=== PATIENT | male | born 1985 | race Caucasian/White ===

== ENCOUNTER 2020-04-15 14:15 | Emergency (ER) | payer MEDICAID ==
[~2020-04-15] VITALS: Ht 177.8 cm; Wt 103.4 kg
[2020-04-15 14:26] VITALS: BP_SYST 130
--- NOTE | 2020-04-15 14:34 | NUR ---
Patient triaged and placed in waiting room. VSS and patient appears in no acute distress at this time. Awaiting available bed, and MD notified of need for MSE.
--- NOTE | 2020-04-15 16:50 | NUR ---
ER at bedside examining patient.
--- NOTE | 2020-04-15 16:55 | NUR ---
Pt came to ER for pressure in sinuses rating 4/10 pain. Pt evaluated by , CARLITAS.
[2020-04-15 17:00] VITALS: BP_SYST 130
--- NOTE | 2020-04-15 17:00 | NUR ---
Patient given written and verbal discharge instructions and verbalizes understanding. ER MD discussed with patient the results and treatment provided. Patient in stable condition. ID arm band removed. Rx of Flonase and Amoxicillin given. Patient educated on pain management and to follow up with PMD. Pain Scale 3/10. Opportunity for questions provided and answered. Medication side effect fact sheet provided.
== END 2020-04-15 17:00 | disposition home or self-care (01) ==
LOC: SED 14:15
DX: J32.9 Chronic sinusitis, unspecified (principal)
CPT/HCPCS: 99283

== ENCOUNTER 2020-08-08 06:38 | Emergency (ER) | payer MEDICAID ==
[~2020-08-08] VITALS: Ht 167.6 cm; Wt 74.8 kg
[2020-08-08 07:27] VITALS: BP_SYST 142
[2020-08-08 08:19] VITALS: BP_SYST 142
[2020-08-08] MEDS ORDERED: ACETAMINOPHEN 325 MG TABLET PO ONE (08:30)
== END 2020-08-08 08:20 | disposition home or self-care (01) ==
LOC: SED 06:38
DX: J11.1 Influenza due to unidentified influenza virus with other respiratory manifestations (principal); R50.9 Fever, unspecified; I10 Essential (primary) hypertension; Z20.828 Contact with and (suspected) exposure to other viral communicable diseases
CPT/HCPCS: 99283; U0003

== ENCOUNTER 2022-02-16 10:37 | Emergency (ER) | payer SELFPAY ==
[~2022-02-16] VITALS: Ht 185.4 cm; Wt 99.8 kg
[2022-02-16 10:59] VITALS: BP_SYST 152
[2022-02-16] MEDS ORDERED: MAG HYDROX/AL HYDROX/SIMETH 30 ML, LIDOCAINE VISCOUS 2% 15ML (PO) 15 ML, DICYCLOMINE HC... PO ONE ×3 (12:15)
[2022-02-16] MEDS ORDERED: FAMOTIDINE 20 MG TABLET PO ONE (12:15)
[2022-02-16 12:54] LABS: BASOPHILS % (AUTO) 0.6 % (0.0-2.0); EOSINOPHILS # (AUTO) 0.3 K/uL (0.0-0.4); HEMATOCRIT 42.4 % (36-54); HEMOGLOBIN 13.9 g/dL (14.0-18.0); LYMPHOCYTES % (AUTO) 37.2 % (20.5-51.5); MEAN CORPUSCULAR HEMOGLOBIN 24 pg (27-31); MEAN CORPUSCULAR HGB CONC 33 % (32-36); MEAN CORPUSCULAR VOLUME 74 fL (79.0-98.0); MONOCYTES # (AUTO) 0.2 K/uL (0.0-1.0); MONOCYTES % (AUTO) 3.8 % (1.7-9.3); NEUTROPHILS # (AUTO) 2.8 K/uL (1.8-7.7); NEUTROPHILS % (AUTO) 53.4 % (40.0-70.0); PLATELET COUNT (AUTO) 195 K/uL (130-430); RED BLOOD CELL COUNT(AUTO) 5.73 MIL/uL (4.2-6.2); RED CELL DISTRIBUTION WIDTH 15.3 % (9.0-15.0); WHITE BLOOD COUNT (AUTO) 5.3 K/uL (4.8-10.8)
[2022-02-16 13:20] LABS: CALCIUM 9.3 mg/dL (8.4-11.0); CREATININE 0.9 mg/dL (0.55-1.30); POTASSIUM 4.4 mmol/L (3.5-5.1)
[2022-02-16 13:25] LABS: ALBUMIN 3.8 g/dL (3.4-4.8); TOTAL BILIRUBIN 0.5 mg/dL (0.0-1.0)
[2022-02-16] MEDS ORDERED: OMEP40CA20 PO (14:24)
[2022-02-16] MEDS ORDERED: ANT30 PO (14:25)
[2022-02-16 14:50] VITALS: BP_SYST 137
== END 2022-02-16 14:50 | disposition home or self-care (01) ==
LOC: SED 10:37
DX: K29.00 Acute gastritis without bleeding (principal); R10.13 Epigastric pain; R11.0 Nausea; I10 Essential (primary) hypertension; Z79.899 Other long term (current) drug therapy; Z20.822 Contact with and (suspected) exposure to COVID-19
CPT/HCPCS: 99284; 87426; 80053; 83690; 85025; 36415; 74018; J2001

== ENCOUNTER 2022-02-18 20:13 | Emergency (ER) | payer SELFPAY ==
[~2022-02-18] VITALS: Ht 182.9 cm; Wt 109.8 kg
[~2022-02-18 20:13] MED LIST: ANT30 PO; OMEP40CA20 PO
[2022-02-18 21:04] VITALS: BP_SYST 138
--- NOTE | 2022-02-18 21:38 | NUR ---
Pt placed to ER bed 01 via W/C, to gown, to product safety and standards engineer. Report given to MARCI.
--- NOTE | 2022-02-18 22:07 | NUR ---
ER at bedside examining patient.
[2022-02-18 22:18] LABS: BASOPHILS % (AUTO) 0.5 % (0.0-2.0); EOSINOPHILS % (AUTO) 0.5 % (0.0-4.0); HEMATOCRIT 40.9 % (36-54); HEMOGLOBIN 13.7 g/dL (14.0-18.0); LYMPHOCYTES % (AUTO) 34.2 % (20.5-51.5); MEAN CORPUSCULAR HEMOGLOBIN 25 pg (27-31); MEAN CORPUSCULAR HGB CONC 34 % (32-36); MEAN CORPUSCULAR VOLUME 73 fL (79.0-98.0); MONOCYTES # (AUTO) 0.7 K/uL (0.0-1.0); MONOCYTES % (AUTO) 12.4 % (1.7-9.3); NEUTROPHILS # (AUTO) 3.1 K/uL (1.8-7.7); NEUTROPHILS % (AUTO) 52.4 % (40.0-70.0); PLATELET COUNT (AUTO) 186 K/uL (130-430); RED BLOOD CELL COUNT(AUTO) 5.58 MIL/uL (4.2-6.2); RED CELL DISTRIBUTION WIDTH 14.6 % (9.0-15.0); WHITE BLOOD COUNT (AUTO) 5.9 K/uL (4.8-10.8)
[2022-02-18 22:58] LABS: ANION GAP 11 (5-15); CALCIUM 9.1 mg/dL (8.4-11.0); CHLORIDE 97 mmol/L (98-107); CREATININE 1.23 mg/dL (0.55-1.30); GLUCOSE 143 mg/dL (70-99); POTASSIUM 3.5 mmol/L (3.5-5.1); SODIUM SERUM 133 mmol/L (136-145); UREA NITROGEN, BLOOD 11 mg/dL (8-21)
[2022-02-18 23:06] LABS: ALANINE AMINOTRANSFERASE 56 U/L (12-78); ALBUMIN 3.2 g/dL (3.4-4.8); ASPARTATE AMINOTRANSFERASE 46 U/L (10-37); TOTAL BILIRUBIN 1.4 mg/dL (0.0-1.0)
[2022-02-18 23:10] LABS: GFR AFRICAN AMERICAN 84 mL/min (>90)
--- NOTE | 2022-02-18 23:10 | NUR ---
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
[2022-02-19] MEDS ORDERED: NACL 0.9% 1,000 ML IV ONE (00:45)
--- NOTE | 2022-02-19 02:14 | NUR ---
flu swab obtained and sent to lab
[2022-02-19] MEDS ORDERED: iohexoL 350 mgI/mL, 100 ML INFUS..BTL IV ONE (02:43)
[2022-02-19 02:54] LABS: BILIRUBIN,URINE NEGATIVE (NEGATIVE); CLARITY/URINE CLEAR (CLEAR); COLOR,URINE YELLOW (YELLOW); GLUCOSE,URINE NEGATIVE (NEGATIVE); KETONES,URINE NEGATIVE (NEGATIVE); LEUKOCYTE ESTERASE ,URINE NEGATIVE (NEGATIVE); NITRITE, URINE NEGATIVE (NEGATIVE); PROTEIN URINE TRACE (NEGATIVE); UROBILINOGEN,URINE 0.2 (0.2-1.0)
[2022-02-19 02:59] LABS: BLOOD, URINE TRACE (NEGATIVE)
[2022-02-19 03:15] LABS: BARBITURATE, URINE NEGATIVE (NEG <=200); BENZODIAZEPINE, URINE NEGATIVE (NEG <=150); CANNABINOID, URINE NEGATIVE (NEG <=50); COCAINE, URINE NEGATIVE (NEG <=150); METHAMPHETAMINES SCREEN,URINE NEGATIVE (NEG <=500); OPIATE, URINE NEGATIVE (NEG <=100); PHENCYCLIDINE SCREEN,URINE NEGATIVE (NEG <=25); UR TRICYCLIC ANTIDEPRESSANTS NEGATIVE (NEG <=300); URINE AMPHETAMINE NEGATIVE (NEG <=500); URINE METHADONE NEGATIVE (NEG <=200); URINE OXYCODONE SCREEN NEGATIVE (NEG <=100); URINE PROPOXYPHENE SCREEN NEGATIVE (NEG <=300)
[2022-02-19 05:47] VITALS: BP_SYST 132
== END 2022-02-19 04:45 | disposition home or self-care (01) ==
LOC: SED 20:13
DX: B34.9 Viral infection, unspecified (principal); R55 Syncope and collapse; R06.02 Shortness of breath; R50.9 Fever, unspecified; R05.9 Cough, unspecified; R03.0 Elevated blood-pressure reading, without diagnosis of hypertension; Z79.899 Other long term (current) drug therapy
CPT/HCPCS: 99285; 71045; 80307; 80053; 82962; 85025; 85379; 86886; 86900; 86901; 87040; 84484; 36415; 93005; 83605; 81003; 87804 ×2; 96360; 71275; Q9967; J7030